=== PATIENT | female | born 1985 ===

== ENCOUNTER 2021-01-11 08:08 | Outpatient (CLI) | payer OTHER | END 2021-01-11 09:03 | disposition home or self-care (01) | LOC: PRENATAL 08:08 | PROVIDERS: ATTEND Obstetrics & Gynecology Maternal & Fetal Medicine | DX: O35.0XX1 Maternal care for (suspected) central nervous system malformation in fetus, fetus 1 (principal); O35.3XX1 Maternal care for (suspected) damage to fetus from viral disease in mother, fetus 1; O98.513 Other viral diseases complicating pregnancy, third trimester; O99.213 Obesity complicating pregnancy, third trimester; Z36.89 Encounter for other specified antenatal screening; Z3A.28 28 weeks gestation of pregnancy ==